=== PATIENT | male | born 1950 | race African-American/Black ===

== ENCOUNTER 2024-03-06 08:56 | Inpatient (IN) | payer MEDICARE ==
[~2024-03-06] VITALS: Ht 177.8 cm; Wt 99.8 kg
[2024-03-06 10:28] LABS: DIFFERENTIAL COMMENT 0; EOSINOPHILS % 12.5 % (0.0-5.0); HEMATOCRIT. 41.5 % (42.0-52.0); HEMOGLOBIN. 13.2 g/dL (14.0-18.0); LYMPHOCYTES % 17.6 % (20.0-50.0); MEAN CORPUSCULAR HEMOGLOBIN 25.1 pg (28.0-32.0); MEAN CORPUSCULAR HGB CONC 31.8 g/dL (31.0-37.0); MEAN CORPUSCULAR VOLUME 78.9 fL (80.0-94.0); MEAN PLATELET VOLUME 8.6 fl (7.4-10.4); MONOCYTES % 13.5 % (2.0-8.0); NEUTROPHILS % 55.4 % (40.0-76.0); PLATELET 291 x1000/uL (130-400); RED BLOOD CELL COUNT 5.26 mill/uL (4.7-6.1); RED CELL DISTRIBUTION WIDTH 18.8 % (11.6-14.6); WHITE BLOOD COUNT 5.3 x1000/uL (4.5-11.0)
[2024-03-06] MEDS ORDERED: MAGNESIUM/ALUMINUM HYDROXIDE/SIMETHICONE 30ML UDC PO PRN (10:30)
[2024-03-06] MEDS ORDERED: POLYETHYLENE GLYCOL 3350 (17GM) 1 DOSE PACK PO PRN (10:30)
[2024-03-06] MEDS ORDERED: ACETAMINOPHEN 325MG TABLET PO PRN (10:30)
[2024-03-06] MEDS ORDERED: ONDANSETRON HCL 4MG/2ML INJ IV PRN (10:30)
[2024-03-06] MEDS ORDERED: IPRATROPIUM/ALBUTEROL 0.5-3(2.5)MG/3ML NEB HHN PRN (10:30)
[2024-03-06 10:33] LABS: CHLORIDE 99 mEq/L (98-107); POTASSIUM 3.5 mEq/L (3.5-5.1); SODIUM 138 mEq/L (136-145)
[2024-03-06 10:34] LABS: CALCIUM 9.2 mg/dL (8.7-10.4); CARBON DIOXIDE 33 mEq/L (21-32)
[2024-03-06 10:39] LABS: CREATININE 1.3 mg/dL (0.6-1.3); GLUCOSE 107 mg/dL (70-105); UREA NITROGEN BLOOD 18 mg/dL (9-23)
[2024-03-06] MEDS: GUAIFENESIN 200MG/10ML SUGAR FREE UDC PO SCH (12:22)
[2024-03-06] MEDS: POTASSIUM CHLORIDE 20MEQ TABLET SR PO SCH (12:22)
[2024-03-06] MEDS: AMLODIPINE 5MG TABLET PO SCH (12:23)
[2024-03-06] MEDS: ASPIRIN 81MG TABLET ONE (12:29)
[2024-03-06] MEDS: ASPIRIN 81MG TABLET PO ONE (12:29)
[2024-03-06] MEDS: LOSARTAN 25 MG TABLET PO SCH (13:28)
[2024-03-06 17:25] VITALS: BP 103/73; PULSE 91; RESP 17; TEMP 36.4
[2024-03-06 18:08] VITALS: BP 108/73; PULSE 91; RESP 17; TEMP 36.5; O2SAT 99
[2024-03-06 20:00] VITALS: BP 115/75; PULSE 89; RESP 18; TEMP 36.4; O2SAT 99
[2024-03-06] MEDS: RISPERIDONE 1MG TABLET PO SCH (20:31)
[2024-03-06] MEDS: QUETIAPINE FUMARATE 25MG TABLET PO SCH (20:32)
[2024-03-06] MEDS: CARVEDILOL 3.125 MG TABLET PO SCH (20:36)
[2024-03-07] VITALS: BP 147/108; PULSE 123; RESP 19; TEMP 36.4; O2SAT 100
[2024-03-07 04:00] VITALS: BP 140/96; PULSE 117; RESP 19; TEMP 36.5; O2SAT 97
[2024-03-07 08:00] VITALS: BP 138/86; PULSE 74; RESP 20; TEMP 36.9; O2SAT 98
[2024-03-07] MEDS: FUROSEMIDE 40MG TABLET PO SCH (09:34)
[2024-03-07 12:00] VITALS: BP 122/84; PULSE 80; RESP 22; TEMP 37.1; O2SAT 95
[2024-03-07 16:00] VITALS: BP 128/91; PULSE 111; RESP 20; TEMP 36.7; O2SAT 100
[2024-03-07 20:00] VITALS: BP 140/92; PULSE 89; RESP 18; TEMP 36.5; O2SAT 98
[2024-03-07] MEDS: ENOXAPARIN 40MG/0.4ML SYR SUBCUT SCH (21:04)
[2024-03-08] VITALS (7 sets, daily range): BP systolic 106–158; BP diastolic 68–98; PULSE 77–91; RESP 18–20; TEMP 36.3–36.8; O2SAT 93–98
[2024-03-08] MEDS ORDERED: RISP1 PO (10:43)
[2024-03-08] MEDS ORDERED: LOSA25TA26 PO (10:43)
[2024-03-08] MEDS ORDERED: COR3 PO (10:43)
[2024-03-08] MEDS ORDERED: FURO40TA5 PO (10:43)
[2024-03-08] MEDS ORDERED: QUET25TA PO (10:43)
[2024-03-08] MEDS ORDERED: AMLO5TAB88 PO (10:43)
== END 2024-03-09 00:05 | DRG 291 ==
LOC: ER 08:56 → 7WST 09:59 → EDBEDREQTM 10:04 → EDBEDREQ 10:04 → 7WST 18:15
PROVIDERS: ADMIT Internal Medicine; ATTEND Internal Medicine
DX: I11.0 Hypertensive heart disease with heart failure (principal); I50.23 Acute on chronic systolic (congestive) heart failure; E11.9 Type 2 diabetes mellitus without complications; F03.90 Unspecified dementia, unspecified severity, without behavioral disturbance, psychotic disturbance, mood disturbance, and anxiety; Z20.822 Contact with and (suspected) exposure to COVID-19; F20.9 Schizophrenia, unspecified; Z79.899 Other long term (current) drug therapy; Z88.8 Allergy status to other drugs, medicaments and biological substances
CPT/HCPCS: 36415; 71045; 80048; 85025; 87420; 87426; 87804; 93005; 99285; J1650